=== PATIENT | male | born 1960 | race Caucasian/White ===

== ENCOUNTER 2016-07-06 01:05 | Inpatient (IN) | payer OTHER ==
[~2016-07-06] VITALS: Ht 185.4 cm; Wt 102.1 kg
[2016-07-06 02:36] LABS: HEMOGLOBIN 13.9 gm/dl (14.0-17.5); RED BLOOD COUNT 4.63 M/UL (4.20-5.50); WHITE BLOOD COUNT 9.6 K/UL (4.5-11.0)
[2016-07-06 02:47] LABS: BUN/CREATININE RATIO 19 (0-10)
[2016-07-06] MEDS ORDERED: RANEXA500 MG PO (10:39)
[2016-07-06] MEDS ORDERED: TOPROL XL 50 MG50 MG PO (10:40)
[2016-07-06] MEDS ORDERED: OMEPRAZOLE40 MG PO (10:40)
[2016-07-06] MEDS ORDERED: SYNTHROID75 MCG PO (10:41)
[2016-07-06] MEDS ORDERED: ZANTAC150 MG PO (10:41)
[2016-07-06] MEDS ORDERED: LISINOPRIL20 MG PO (10:42)
[2016-07-06] MEDS ORDERED: LIPITOR TAB 2020 MG PO (10:42)
[2016-07-06] MEDS ORDERED: ZETIA10 MG PO (10:45)
[2016-07-06] MEDS ORDERED: ASPIR 8181 MG PO (10:46)
[2016-07-06] MEDS ORDERED: COQ1050 MG PO (10:46)
[2016-07-06] MEDS ORDERED: FISH OIL 1,2001 EACH PO (10:47)
[2016-07-06] MEDS ORDERED: NEURONTIN 100100 MG PO (11:14)
[2016-07-07 05:10] LABS: HEMOGLOBIN 13.7 gm/dl (14.0-17.5); RED BLOOD COUNT 4.55 M/UL (4.20-5.50); WHITE BLOOD COUNT 8.4 K/UL (4.5-11.0)
[2016-07-07 05:21] LABS: BUN/CREATININE RATIO 13 (0-10)
[2016-07-09 04:42] LABS: HEMOGLOBIN 13.7 gm/dl (14.0-17.5); RED BLOOD COUNT 4.64 M/UL (4.20-5.50)
[2016-07-09 04:45] LABS: WHITE BLOOD COUNT 6.1 K/UL (4.5-11.0)
[2016-07-09 04:55] LABS: BUN/CREATININE RATIO 17 (0-10)
[2016-07-09] MEDS ORDERED: PERCOCET 5-3251 EACH PO (09:02)
[2016-07-09] MEDS ORDERED: VANCOCIN 125MG/2.5ML IV (09:03)
== END 2016-07-09 19:32 | disposition home health service (06) | DRG 506 ==
LOC: ER1 01:05 → ZEROF 07:29 → MED SURG 4 07:29
PROVIDERS: Emergency Medicine; Orthopaedic Surgery; ADMIT Emergency Medicine
PROC: 0R9P3ZX Drainage of Left Wrist Joint, Percutaneous Approach, Diagnostic (ICD-10-PCS; 2016-07-06)
PROC: 0R9P00Z Drainage of Left Wrist Joint with Drainage Device, Open Approach (ICD-10-PCS; principal; 2016-07-06 15:45)
PROC: 02HV33Z Insertion of Infusion Device into Superior Vena Cava, Percutaneous Approach (ICD-10-PCS; 2016-07-09)
PROC: B548ZZA Ultrasonography of Superior Vena Cava, Guidance (ICD-10-PCS; 2016-07-09)
DX: M00.832 Arthritis due to other bacteria, left wrist (principal); I11.0 Hypertensive heart disease with heart failure; I50.9 Heart failure, unspecified; I25.10 Atherosclerotic heart disease of native coronary artery without angina pectoris; E03.9 Hypothyroidism, unspecified; K31.84 Gastroparesis; E78.5 Hyperlipidemia, unspecified; K29.70 Gastritis, unspecified, without bleeding; K59.00 Constipation, unspecified; S62.305D Unspecified fracture of fourth metacarpal bone, left hand, subsequent encounter for fracture with routine healing; S62.307D Unspecified fracture of fifth metacarpal bone, left hand, subsequent encounter for fracture with routine healing; X58.XXXD Exposure to other specified factors, subsequent encounter; Z95.1 Presence of aortocoronary bypass graft; Z95.5 Presence of coronary angioplasty implant and graft; Z87.891 Personal history of nicotine dependence; Z79.82 Long term (current) use of aspirin; Z79.899 Other long term (current) drug therapy; Z98.890 Other specified postprocedural states; Z82.49 Family history of ischemic heart disease and other diseases of the circulatory system; Z83.3 Family history of diabetes mellitus
CPT/HCPCS: 36415; 73110; 80048; 80053; 80202; 83690; 84484; 84550; 85025; 85027; 86140; 87040; 87070; 87205; 89051; 89060; 96365; 96375; 96376; 99284; J2250; J2270; J2405; J3010; J3370; J7050; J7070; J7120

== ENCOUNTER 2016-07-19 16:28 | Inpatient (IN) | payer OTHER ==
[~2016-07-19] VITALS: Ht 185.4 cm; Wt 101.2 kg
[~2016-07-19 16:28] MED LIST: ASPIR 8181 MG PO; COQ1050 MG PO; FISH OIL 1,2001 EACH PO; LIPITOR TAB 2020 MG PO; LISINOPRIL20 MG PO; NEURONTIN 100100 MG PO; OMEPRAZOLE40 MG PO; PERCOCET 5-3251 EACH PO; RANEXA500 MG PO; SYNTHROID75 MCG PO; TOPROL XL 50 MG50 MG PO; VANCOCIN 125MG/2.5ML IV; ZANTAC150 MG PO; ZETIA10 MG PO
[2016-07-19 18:28] LABS: HEMOGLOBIN 12.1 gm/dl (14.0-17.5); RED BLOOD COUNT 4.06 M/UL (4.20-5.50); WHITE BLOOD COUNT 3.3 K/UL (4.5-11.0)
[2016-07-19 18:39] LABS: BUN/CREATININE RATIO 19 (0-10)
[2016-07-20 06:16] LABS: HEMOGLOBIN 12.7 gm/dl (14.0-17.5); RED BLOOD COUNT 4.28 M/UL (4.20-5.50); WHITE BLOOD COUNT 3.1 K/UL (4.5-11.0)
[2016-07-20 06:41] LABS: BUN/CREATININE RATIO 17 (0-10)
[2016-07-21 07:07] LABS: RED BLOOD COUNT 4.46 M/UL (4.20-5.50)
[2016-07-21 07:24] LABS: BUN/CREATININE RATIO 19 (0-10)
[2016-07-21 07:42] LABS: WHITE BLOOD COUNT 5.1 K/UL (4.5-11.0)
[2016-07-21] MEDS ORDERED: ZYVOX600 MG PO (13:07)
== END 2016-07-21 14:10 | disposition home health service (06) | DRG 549 ==
LOC: ER1 16:28 → ZEROF 19:19 → M/S 19:19
PROVIDERS: Emergency Medicine; Internal Medicine Infectious Disease; ADMIT Emergency Medicine
DX: M00.832 Arthritis due to other bacteria, left wrist (principal); L03.114 Cellulitis of left upper limb; B96.89 Other specified bacterial agents as the cause of diseases classified elsewhere; D72.819 Decreased white blood cell count, unspecified; I25.10 Atherosclerotic heart disease of native coronary artery without angina pectoris; I11.0 Hypertensive heart disease with heart failure; I50.9 Heart failure, unspecified; E03.9 Hypothyroidism, unspecified; E78.5 Hyperlipidemia, unspecified; R50.2 Drug induced fever; T36.8X5A Adverse effect of other systemic antibiotics, initial encounter; K76.0 Fatty (change of) liver, not elsewhere classified; Z95.1 Presence of aortocoronary bypass graft; Z95.5 Presence of coronary angioplasty implant and graft; Z87.891 Personal history of nicotine dependence; Z79.82 Long term (current) use of aspirin; Z79.899 Other long term (current) drug therapy; Z79.2 Long term (current) use of antibiotics; Z98.890 Other specified postprocedural states; Z83.3 Family history of diabetes mellitus; Z82.49 Family history of ischemic heart disease and other diseases of the circulatory system
CPT/HCPCS: 36415; 71020; 80048; 80053; 81001; 82550; 83605; 83690; 84484; 85025; 85027; 86140; 87040; 96365; 96375; 99284; J0878; J1335; J2060; J2543; J3370; J7050; J7070

== ENCOUNTER → 2020-04-14 | Outpatient (CLI) | payer BC, OTHER ==
[~2020-04-14] MED LIST changes: +ZYVOX600 MG PO
[2020-04-14 10:36] LABS: BUN/CREATININE RATIO 13 (0-10)
== END ==
LOC: LAB 09:24
PROVIDERS: Emergency Medicine
DX: I25.10 Atherosclerotic heart disease of native coronary artery without angina pectoris (principal); I10 Essential (primary) hypertension; G60.3 Idiopathic progressive neuropathy; E78.2 Mixed hyperlipidemia
CPT/HCPCS: 36415; 80048; 83036

== ENCOUNTER → 2020-10-14 | Outpatient (CLI) | payer BC ==
[2020-10-14 09:00] LABS: HEMOGLOBIN 15.6 gm/dl (14.0-17.5); RED BLOOD COUNT 5.08 M/UL (4.20-5.50); WHITE BLOOD COUNT 5.4 K/UL (4.5-11.0)
[2020-10-14 09:21] LABS: BUN/CREATININE RATIO 15 (0-10)
[2020-10-17 14:09] LABS: CHOLESTEROL, TOTAL 172 mg/dL (100-199); HDL SIZE 8.2 nm (>=9.2); HDL-C 40 mg/dL (>39); LARGE HDL-P <1.3 umol/L (>=4.8); LARGE VLDL-P 2.2 nmol/L (<=2.7); LDL SIZE 20.7 nm (>20.5); LDL SIZE 20.7 nm (>=20.8); LDL-C 109 mg/dL (0-99); LDL-P 1598 nmol/L (<1000); LP-IR SCORE 64 (<=45); SMALL LDL-P 976 nmol/L (<=527); TRIGLYCERIDES 127 mg/dL (0-149)
== END ==
LOC: LAB 08:27
PROVIDERS: Emergency Medicine
DX: I10 Essential (primary) hypertension (principal); E78.2 Mixed hyperlipidemia; E03.8 Other specified hypothyroidism
CPT/HCPCS: 36415; 80053; 80061; 83704; 84443; 84550; 85025

== ENCOUNTER → 2021-04-25 | Outpatient (CLI) | payer BC ==
[2021-04-26 09:15] LABS: A/G RATIO 1.7 (1.2-2.2); BILIRUBIN, TOTAL 0.4 mg/dL (0.0-1.2); CALCIUM, SERUM 9.5 mg/dL (8.6-10.2); CREATININE, SERUM 1.06 mg/dL (0.76-1.27); GLOBULIN, TOTAL 2.5 g/dL (1.5-4.5); POTASSIUM, SERUM 4.7 mmol/L (3.5-5.2); PROTEIN, TOTAL, SERUM 6.8 g/dL (6.0-8.5)
[2021-04-26 11:15] LABS: TSH 1.54 uIU/mL (0.450-4.500)
[2021-04-27 15:16] LABS: CHOLESTEROL, TOTAL 155 mg/dL (100-199); HDL SIZE 8.6 nm (>=9.2); HDL-C 43 mg/dL (>39); HDL-P (TOTAL) 30.7 umol/L (>=30.5); LARGE HDL-P 2.5 umol/L (>=4.8); LARGE VLDL-P 2.4 nmol/L (<=2.7); LDL SIZE 20.5 nm (>20.5); LDL SIZE 20.5 nm (>=20.8); LDL-C 91 mg/dL (0-99); LDL-P 1352 nmol/L (<1000); LP-IR SCORE 62 (<=45); SMALL LDL-P 845 nmol/L (<=527); TRIGLYCERIDES 115 mg/dL (0-149)
== END ==
LOC: LAB 07:44
PROVIDERS: Emergency Medicine
DX: I25.10 Atherosclerotic heart disease of native coronary artery without angina pectoris (principal); I10 Essential (primary) hypertension; K21.9 Gastro-esophageal reflux disease without esophagitis; E78.2 Mixed hyperlipidemia; E03.8 Other specified hypothyroidism
CPT/HCPCS: 36415; 80053; 80061; 83704; 84153; 84443

== ENCOUNTER → 2021-10-11 | Outpatient (CLI) | payer BC ==
[2021-10-11 09:16] LABS: BUN/CREATININE RATIO 17 (0-10)
[2021-10-13 11:14] LABS: CHOLESTEROL, TOTAL 151 mg/dL (100-199); HDL SIZE 8.3 nm (>=9.2); HDL-C 39 mg/dL (>39); HDL-P (TOTAL) 29.4 umol/L (>=30.5); LARGE HDL-P <1.3 umol/L (>=4.8); LARGE VLDL-P 2.9 nmol/L (<=2.7); LDL SIZE 20.7 nm (>20.5); LDL SIZE 20.7 nm (>=20.8); LDL-C 93 mg/dL (0-99); LDL-P 1128 nmol/L (<1000); LP-IR SCORE 71 (<=45); SMALL LDL-P 507 nmol/L (<=527); TRIGLYCERIDES 105 mg/dL (0-149)
== END ==
LOC: LAB 07:34
PROVIDERS: Emergency Medicine
DX: I25.10 Atherosclerotic heart disease of native coronary artery without angina pectoris (principal); I10 Essential (primary) hypertension; E78.2 Mixed hyperlipidemia; E03.8 Other specified hypothyroidism
CPT/HCPCS: 36415; 80053; 80061; 83704; 84443